=== PATIENT | male | born 1970 | race Caucasian/White ===

== ENCOUNTER 2017-12-24 13:17 | Emergency (ER) | payer BC ==
[~2017-12-24] VITALS: Ht 177.8 cm; Wt 108.9 kg
[2017-12-24 15:05] VITALS: BP 149/91
[2017-12-24] MEDS ORDERED: KETOROLAC TROMETH 60MG/2ML VIAL IM ONE (15:15)
[2017-12-24 15:32] LABS: Urine Bacteria NONE SEEN /hpf (None Seen); Urine Blood TRACE /uL (Negative); Urine Mucus FEW (None Seen); Urine Specific Gravity 1.023 (1.001-1.035); Urine WBC <1 /hpf (0 - 3)
== END 2017-12-24 16:44 | disposition home or self-care (01) ==
LOC: ER 13:17
DX: N20.0 Calculus of kidney (principal)
CPT/HCPCS: 74176; 81001; 96372; 99285; J1885